=== PATIENT | female | born 1990 ===

== ENCOUNTER 2024-07-06 17:45 | Outpatient (REF) | payer MEDICAID, SELFPAY ==
--- NOTE | 2024-07-06 13:15 | PAPFT_PTH ---
PATIENT: Kelsey Amanda LOC: [facility] U#:[id number] AGE/SX: 34/F ROOM: RE07/06/[address]: ADRIANA: 1990 BED: DIS: 07/06/2024 SPEC #: [id number] RECD: 07/07/24 12:42 STATUS: LESA PISANO #: [id number] MARINA: 07/06/24 13:[address]: Christina Reynaga DEPT: [facility] Cytology RECD BY: Noemi Treviño ENTERED: 07/07/24 12:42 SP TYPE: PAPFT NESSA DR: Unknown,Unknown Tissues: 1 - CX/ENDOCX FOR PAP SMEARS Procedures: PAP THIN PREP/[facility] Screening Comments: [id number]
== END 2024-07-06 17:46 | disposition home or self-care (01) ==
LOC: NCHCN 17:45
PROVIDERS: Visit Provider Family Medicine
DX: Z12.4 Encounter for screening for malignant neoplasm of cervix (principal)
CPT/HCPCS: 88142

== ENCOUNTER 2024-08-09 18:35 | Outpatient (REF) | payer MEDICAID, SELFPAY | END 2024-08-09 18:36 | disposition home or self-care (01) | LOC: NCHCN 18:35 | PROVIDERS: Visit Provider Nurse Practitioner Family | DX: S91.311D Laceration without foreign body, right foot, subsequent encounter (principal); X58.XXXD Exposure to other specified factors, subsequent encounter | CPT/HCPCS: 87070; 87205 ==